=== PATIENT | male | born 1970 | race Caucasian/White ===

== ENCOUNTER 2018-07-25 15:44 | Emergency (ER) | payer OTHER ==
--- NOTE | 2018-07-25 16:35 | EDM.PDOC ---
ED HPI GENERAL MEDICAL PROBLEM - General Chief Complaint: Flank Pain Stated Complaint: LEFT FLANK PAIN Time Seen by Provider: 07/25/18 16:20 Source of Information: Reports: Patient, Provider History Limitations: Reports: No Limitations - History of Present Illness INITIAL COMMENTS - FREE TEXT/NARRATIVE: 48-year-old male with previous history of nephrolithiasis, lithotripsy on the left side 12 years ago has been experiencing left flank pain for the past 4 weeks. It's been much worse the last 2 days. He thinks he seen hematuria as well. No fevers or chills. He was in seen primary care today to discuss other issues when he mentioned his flank pain and hematuria he was sent over to the emergency room for a CT scan. Denies any nausea or vomiting, no diarrhea, no history of surgeries. Onset: Gradual Duration: Week(s): (4 weeks) Location: Reports: Other (Left flank) Improves with: Reports: Rest (If he lays down and stays still it seems to improve) Associated Symptoms: Reports: No Other Symptoms Left Flank Pain Score (Numeric/FACES): 5 - Related Data Allergies Allergy/AdvReac Type Severity Reaction Status Date / Time No Known Allergies Allergy Verified 07/25/18 16:15 Home Meds: Home Meds *Hydrochlorothiazide 1 tab PO DAILY 07/25/18 [History] *Lisinopril 1 tab PO DAILY 07/25/18 [History] PARoxetine [Paxil] 20 mg PO BEDTIME 07/25/18 [History] Past Medical History HEENT History: Reports: Impaired Vision Cardiovascular History: Reports: Hypertension Genitourinary History: Reports: Renal Calculus Psychiatric History: Reports: Depression - Past Surgical History Male Surgical History: Reports: Lithotripsy (ESWL) Social & Family History - Tobacco Use Smoking Status *Q: Never Smoker - Recreational Drug Use Recreational Drug Use: No ED ROS GENERAL - Review of Systems Review Of Systems: See Below Constitutional: Denies: Fever, Chills, Malaise HEENT: Reports: No Symptoms Respiratory: Reports: No Symptoms Cardiovascular: Reports: No Symptoms GI/Abdominal: Denies: Abdominal Pain, Nausea, Vomiting : Reports: Flank Pain, Hematuria. Denies: Dysuria, Frequency Musculoskeletal: Reports: No Symptoms Skin: Reports: No Symptoms Neurological: Reports: No Symptoms Psychiatric: Reports: Depression ED EXAM, GENERAL - Physical Exam Exam: See Below Exam Limited By: No Limitations General Appearance: Alert, No Apparent Distress Eye Exam: Bilateral Eye: Normal Inspection Head: Atraumatic Respiratory/Chest: No Respiratory Distress, Lungs Clear Cardiovascular: Regular Rate, Rhythm GI/Abdominal: Soft, Non-Tender Neurological: Alert, Oriented Psychiatric: Normal Affect, Normal Mood Skin Exam: Warm, Dry Course - Vital Signs Last Recorded V/S: Last Vital Signs Temp 97.2 F 07/25/18 18:14 Pulse 85 07/25/18 18:14 Resp 16 07/25/18 18:14 BP 157/98 H 07/25/18 18:14 Pulse Ox 98 07/25/18 18:14 - Orders/Labs/Meds Labs: Laboratory Tests 07/25/18 07/25/18 07/25/18 Range/Units 16:11 16:11 16:11 WBC 9.2 (4.5-11.0) K/uL RBC 5.60 (4.30-5.90) M/uL Hgb 16.2 H (12.0-15.0) g/dL Hct 48.2 (40.0-54.0) % MCV 86 (80-98) fL MCH 29 (27-31) pg MCHC 34 (32-36) % Plt Count 341 (150-400) K/uL Neut % (Auto) 54 (36-66) % Lymph % (Auto) 34 (24-44) % [place] % (Auto) 10 H (2-6) % Eos % (Auto) 2 (2-4) % Baso % (Auto) 0 (0-1) % Sodium 138 L (140-148) mmol/L Potassium 4.2 (3.6-5.2) mmol/L Chloride 102 (100-108) mmol/L Carbon Dioxide 23 (21-32) mmol/L Anion Gap 17.2 H (5.0-14.0) mmol/L BUN 27 H (7-18) mg/dL Creatinine 1.5 H (0.8-1.3) mg/dL Est Cr Clr Drug Dosing 65.39 mL/min Estimated GFR (MDRD) 50 L (>60) Glucose 91 (74-106) mg/dL Calcium 9.6 (8.5-10.1) mg/dL Urine Color Yellow Urine Appearance Cloudy Urine pH 5.0 (4.5-8.0) Ur Specific Plain 1.020 (1.008-1.030) Urine Protein 30 H (NEGATIVE) mg/dL Urine Glucose (UA) Normal (NEGATIVE) mg/dL Urine Ketones Negative (NEGATIVE) mg/dL Urine Occult Blood Large (NEGATIVE) Urine Nitrite Negative (NEGAITVE) Urine Bilirubin Negative (NEGATIVE) Urine Urobilinogen Normal (NORMAL) mg/dL Ur Leukocyte Esterase Negative (NEGATIVE) Urine RBC Packed H (0-5) Urine WBC 5-10 H (0-5) Ur Epithelial Cells Few Amorphous Sediment Not seen Urine Bacteria Not seen Urine Mucus Few Urine Other - Re-Assessments/Exams Free Text/Narrative Re-Assessment/Exam: 07/25/18 16:34 UA, CBC and BMP were obtained. Patient was also sent for a CT of the abdomen and pelvis without contrast. 07/25/18 18:08 white count is normal, however his creatinine is 1.5 and GFR is 50. CT confirms a large 13 x 7 x 8 mm stone in the left renal pelvis with developing hydronephrosis and stranding. He also has packed hematuria. No UTI. Discussed with urology at [facility] and it was recommended he come down to be admitted, hydrated overnight and a procedure tomorrow. Patient's will take him to [place]. Departure - Departure Time of Disposition: 18:39 Disposition: DC/Tfer to Other 70 Condition: Fair Clinical Impression: Ureteric colic, Left nephrolithiasis - Discharge Information Instructions: Kidney Stones, [id number] Referrals: Megan Smith MD [Primary Care Provider] - Forms: ED Department Discharge Care Plan Goals: Go to [facility] to be directly admitted for evaluation and care for your kidney stones.
--- NOTE | 2018-07-25 18:00 | CRLCT ---
INDICATION: Left flank pain. CT ABDOMEN AND PELVIS WITHOUT CONTRAST TECHNIQUE: Multidetector CT imaging was performed through the abdomen and pelvis without intravenous contrast administration. Coronal and sagittal reconstructions were generated. COMPARISON: None. FINDINGS: Lower chest: Elevation of the right diaphragm and small amount of atelectasis or scarring at the right lung base. Right lower lobe calcified granuloma and right hilar lymph node calcifications are incidentally noted. Liver: Within normal limits. Gallbladder and bile ducts: No gallbladder wall thickening or calcified gallstones. No biliary dilation identified. Pancreas: Unremarkable. Spleen: Unremarkable aside from calcified granulomas. Adrenals: No nodules or masses. Kidneys, ureters, and urinary bladder: Nonobstructing 8 millimeter stone in the dependent portion of the right renal pelvis. No right hydronephrosis or right-sided perinephric stranding. 13 x 7 x 8 millimeter stone within the left renal pelvis with mild fullness of the left kidney collecting system and mild fat stranding about the left renal pelvis. No bladder mass or definite wall thickening. 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 No evidence of bowel obstruction. Vascular structures: Normal for age. Peritoneum: No free air, abscess, or significant free fluid. Lymph nodes: No pathologically enlarged nodes identified. Reproductive organs: Mild prostatomegaly. 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 IMPRESSION: 1. 13 x 7 x 8 millimeter stone in the left renal pelvis. There is mild fullness of the left kidney collecting system and peripelvic fat stranding. This may be due to intermittent obstruction at the ureteropelvic junction by the stone, or infection (pyelitis). Clinical correlation is recommended. 2. Nonobstructing 8 millimeter stone in the right renal pelvis. 3. Congenital malrotation of the bowel. No evidence of bowel obstruction. 4. Nonacute additional findings as detailed above. JORDON MCCORMICK MD [employer] Dictated by Talha Mccormick MD @ 07/25/2018 5:58:07 PM Dictated by: Talha Mccormick MD @ 07/25/2018 17:58:41 (Electronically Signed)
== END 2018-07-25 18:39 | disposition other institution (70) ==
LOC: JP.ED 15:44
DX: N13.2 Hydronephrosis with renal and ureteral calculous obstruction (principal); I10 Essential (primary) hypertension; F32.9 Major depressive disorder, single episode, unspecified; Z79.899 Other long term (current) drug therapy
CPT/HCPCS: 36415; 74176; 80048; 81001; 85025; 99285-25

== ENCOUNTER 2020-07-23 08:04 | Day surgery (SDC) | payer OTHER ==
[2020-07-23] MEDS ORDERED: Bupivacaine 0.5% 50 ML MDV ONE (08:06)
[2020-07-23] MEDS ORDERED: Lidocaine 1% with EPINEPHrine 1:100,000 50 ML MDV ONE (08:06)
[2020-07-23] MEDS ORDERED: Sodium Chloride 0.9% 1,000 ML IV SCH (08:45)
[2020-07-23] MEDS ORDERED: ceFAZolin 2 GM in Premix Bag 1 BAG IV ONE (08:45)
[2020-07-23] MEDS ORDERED: Propofol 200 MG/20 ML SDV ONE (08:52)
[2020-07-23] MEDS ORDERED: fentaNYL 100 MCG/2 ML SDV ONE (08:52)
[2020-07-23] MEDS ORDERED: Midazolam 1 MG/ML 2 ML SDV ONE (08:53)
[2020-07-23] MEDS ORDERED: Acetaminophen/HYDROcodone 325-5 MG Tab PO ONE (11:15)
--- NOTE | 2020-07-23 12:12 | OR ---
DATE OF PROCEDURE: 07/23/2020 SURGEON: Jose Luis Hamilton MD PROCEDURE: 1. Excision of medial back lesion 7 mm in circumference x 4 mm in depth. 2. Excision of right back lesion, sebaceous cyst, incision length 3.2 cm x 0.8 cm x full- thickness. 3. Excision of left neck lesion 6 mm in circumference x 4 mm in depth. COMPLICATIONS: None. KENNEL AIDE: None. ANESTHESIA: MAC. PREOPERATIVE DIAGNOSIS: Palpable lesions concerning for sebaceous cyst with history of infection. POSTOPERATIVE DIAGNOSIS: Palpable lesions concerning for sebaceous cyst with history of infection. RISKS: Risks, benefits, alternatives, and limitations including but not limited to infection, bleeding, perforation, false positives and false negatives, requirement for reoperation, chronic wounds, and chronic pain were all explained to the patient who wished to proceed. PROCEDURE IN DETAIL: The patient was placed in a right lateral decubitus position. Upon examination of the area, this was actually consistent with 2 separate cystic-type tracts. Both were excised using a 15 blade, carried down with electrocautery to remove the entire cyst. The areas were inspected after removal. Minimal bleeding was controlled by electrocautery. The wounds were thoroughly irrigated and closed with 3-0 Vicryl and 4-0 Vicryl in interrupted running fashion. The left neck lesion was then addressed first and excised also with a 15 blade. This was inspected for complete removal and was noted. This was closed with 3-0 Vicryl and Dermabond. The patient tolerated the procedure well. Jose Luis Hamilton MD /[id number]
== END 2020-07-23 11:40 | disposition home or self-care (01) ==
LOC: JP.SDS 08:04
PROVIDERS: ATTEND Surgery
DX: L72.0 Epidermal cyst (principal); K21.9 Gastro-esophageal reflux disease without esophagitis; N17.9 Acute kidney failure, unspecified
CPT/HCPCS: 11401; 11404; 11421; A9270; J0690; J2250; J2704; J3010; J3490; J7030

== ENCOUNTER → 2020-10-22 | Day surgery (SDC) | payer OTHER ==
[~2020-10-22] MED LIST: Midazolam 1 MG/ML 2 ML SDV ONE; Propofol 200 MG/20 ML SDV ONE; Sodium Chloride 0.9% 1,000 ML IV SCH; fentaNYL 100 MCG/2 ML SDV ONE
--- NOTE | 2020-10-22 12:21 | OR ---
DATE OF PROCEDURE: SURGEON: Jose Luis Hamilton MD PROCEDURE: Esophagogastroduodenoscopy. FINDINGS: Near-complete narrowing of the esophagus at 20 cm (biopsied approximately x8). COMPLICATIONS: None. NATURAL GAS TECHNICIAN: None. PREOPERATIVE DIAGNOSES: Dysphagia, epigastric pain, gastroesophageal reflux disease. POSTOPERATIVE DIAGNOSES: Dysphagia, epigastric pain, gastroesophageal reflux disease. RISKS: Risks, benefits, alternatives, and limitations including but not limited to infection, bleeding, perforation, false positives and false negatives were explained to the patient and he wished to proceed. PROCEDURE IN DETAIL: The patient was placed in left lateral decubitus position. EGD scope was introduced half the course, and at 20 cm, there was a narrowing with some retained food material. There was a significant amount of inflammation associated with this. There was also active bleeding. There was not a very good sight picture with respect to identifying the etiology of this. However, it was clear at this juncture the scope was unable to be passed beyond this. Biopsies were performed and the procedure was terminated. The patient tolerated the procedure well. Jose Luis Hamilton MD /[id number]
== END ==
LOC: JP.SDS 08:26
PROVIDERS: ATTEND Surgery
DX: K22.10 Ulcer of esophagus without bleeding (principal); K21.00 Gastro-esophageal reflux disease with esophagitis, without bleeding; K22.2 Esophageal obstruction
CPT/HCPCS: J2250; J2704; J3010; J7030

== ENCOUNTER 2021-02-04 10:04 | Day surgery (SDC) | payer OTHER ==
[~2021-02-04 10:04] MED LIST changes: -Midazolam 1 MG/ML 2 ML SDV ONE; -Propofol 200 MG/20 ML SDV ONE; -fentaNYL 100 MCG/2 ML SDV ONE
[2021-02-04] MEDS ORDERED: Propofol 200 MG/20 ML SDV ONE (12:21)
[2021-02-04] MEDS ORDERED: fentaNYL 100 MCG/2 ML SDV ONE (12:21)
[2021-02-04] MEDS ORDERED: Midazolam 1 MG/ML 2 ML SDV ONE (12:21)
--- NOTE | 2021-02-04 13:22 | OR ---
DATE OF PROCEDURE: 02/04/2021 SURGEON: Jose Luis Hamilton MD PROCEDURE PERFORMED: Colonoscopy. FINDINGS: Ascending colon polyp, approximately 5 mm, completely removed using cold biopsy forceps. COMPLICATIONS: None. CAREER AND TRANSITION TEACHER: None. ANESTHESIA: MAC. PREOPERATIVE DIAGNOSIS: Screening colonoscopy. POSTOPERATIVE DIAGNOSIS: Screening colonoscopy. RISKS: Risks, benefits, alternatives, and limitations including, but not limited to infection, bleeding, perforation, false positives, and false negatives were explained to the patient who wished to proceed. PROCEDURE IN DETAIL: The patient was placed in the left lateral decubitus position. Digital rectal exam was performed without abnormality. The scope was introduced and advanced atraumatically to the ileocecal valve. A photo was taken. The scope was brought back to the ascending, transverse, descending colon, and retroflexed. The aforementioned polyp was identified and completely removed. No diverticulosis. No abnormalities on retroflex. Greater than 8 minutes was spent on removing the scope. The prep was acceptable. Approximately 90% of the luminal surface could be seen. The patient tolerated the procedure well. Jose Luis Hamilton MD /[id number]
== END 2021-02-04 13:45 | disposition home or self-care (01) ==
LOC: JP.SDS 10:04
PROVIDERS: ATTEND Surgery
DX: Z12.11 Encounter for screening for malignant neoplasm of colon (principal); D12.2 Benign neoplasm of ascending colon; G47.33 Obstructive sleep apnea (adult) (pediatric); I10 Essential (primary) hypertension; K21.9 Gastro-esophageal reflux disease without esophagitis
CPT/HCPCS: 45380; J2250; J2704; J3010; J7030